=== PATIENT | male | born 1940 | race Caucasian/White ===

== ENCOUNTER 2018-05-15 18:58 | Inpatient (IN) | payer MEDICARE ==
[2018-05-15] MEDS ORDERED: ACETAMINOPHEN 325 MG TABLET PO ONE (19:32)
[2018-05-15] MEDS ORDERED: LIDOCAINE 5% (700 MG) TRANSDERMAL ADH..PATCH TP ONE (19:32)
--- NOTE | 2018-05-15 20:25 | RADIOLOGY REPORT (SQ) ---
2 VIEWS OF THE LEFT HIP HISTORY: Fall. Hip pain. COMPARISON: None. FINDINGS: The bone mineralization is normal. No acute fracture is seen. Hip joints are preserved. Partially visualized fixation of the proximal right femur with a fracture of the first and second most proximal screws. IMPRESSION: No acute left hip fracture. Prior fixation of the right proximal femur with hardware abnormalities as described above.
--- NOTE | 2018-05-15 20:30 | ER Document Report ---
ED General - General Stated Complaint: LEFT HIP PAIN Time Seen by Provider: 05/15/18 19:11 Notes: Patient is a 77-year-old male with a past medical history of hypertension, hyperlipidemia, ambulatory dysfunction at baseline who presents after landing on his toilet seat firmly tonight and now having inability to walk due to severe pain in the left hip. The patient states that he did have a fall 1 week ago landing directly on his left hip but not sustaining any additional injuries. States that he had been doing relatively well since that time, able to ambulate with only mild pain to the hip. However since hitting his hip on the toilet tonight he has been unable to walk and notes a severe, throbbing, constant pain to the hip. Nothing improves or worsens that pain currently. Denies any prior injury to the hip in the past. He does take aspirin daily but no other anticoagulation. He has noted extensive bruising on the hip for the past 1 week. Family also notes that he appears more pale than normal. Patient has not seen his primary care physician regarding today's concerns. He denies any chest pain, shortness of breath, syncope, vomiting or pain to any other location other than his left hip. TRAVEL OUTSIDE OF THE [place] IN LAST 30 DAYS: No Past Medical History - General Information source: Patient, Relative - Social History Smoking Status: Never Smoker Frequency of alcohol use: None Drug Abuse: None Lives with: Alone Family History: Reviewed & Not Pertinent Endocrine Medical History: Reports: Hx Diabetes Mellitus Type 1 Past Surgical History: Reports: Hx Orthopedic Surgery - right knee Review of Systems - Review of Systems Notes: Constitutional: Negative for fever. HENT: Negative for sore throat. Eyes: Negative for visual changes. Cardiovascular: Negative for chest pain. Respiratory: Negative for shortness of breath. Gastrointestinal: Negative for abdominal pain, vomiting or diarrhea. Genitourinary: Negative for dysuria. Musculoskeletal: Positive for left hip pain and injury Skin: Negative for rash. Neurological: Negative for headaches, weakness or numbness. 10 point ROS negative except as marked above and in HPI. Physical Exam - Vital signs Vitals: Temp 98.1 F 05/15/18 19:10 Interpretation: Tachycardic Notes: PHYSICAL EXAMINATION: GENERAL: Appears somewhat pale and in pain but no acute distress HEAD: Atraumatic, normocephalic. EYES: Pupils equal round and reactive to light, extraocular movements intact, sclera anicteric, conjunctiva are normal. ENT: nares patent, oropharynx clear without exudates. Moist mucous membranes. NECK: Normal range of motion, supple without lymphadenopathy LUNGS: Breath sounds clear to auscultation bilaterally and equal. No wheezes rales or rhonchi. HEART: Regular tachycardia without murmurs ABDOMEN: Soft, nontender, normoactive bowel sounds. No guarding, no rebound. No masses appreciated. EXTREMITIES: No pain with axial loading, internal or external rotation of the left hip. NEUROLOGICAL: No focal neurological deficits. Moves all extremities spontaneously and on command. PSYCH: Normal mood, normal affect. SKIN: Warm, Dry, normal turgor, extensive ecchymosis to the left lateral hip, thigh and pelvis region Course - Re-evaluation Re-evalutation: 05/15/18 20:28 Patient presents with left hip pain after mechanical fall 1 week ago when she landed on his left hip. The patient reports that he had been doing quite well until today until he landed onto the left hip rather abruptly while trying to sit down to use the toilet. He denies any syncopal symptoms or anything other than landing on the toilet seat too rapidly. Since that time has been unable to ambulate. On exam he has extensive bruising over the lateral aspect of the hip and proximal thigh also extending into the groin. Patient does have exquisite palpation tenderness although no pain with axial loading or internal or external rotation of the hip. X-ray without any evidence of acute fracture. The patient is noted to be tachycardic to 110 bpm at time of initial assessment and does appear somewhat pale. I do a concern of the patient could have bled substantially into the soft tissues based on his overall appearance and tachycardia. Tachycardia could also be due to uncontrolled pain. Will provide improved pain control, obtain a CT of the hip and pelvis to ensure that we are not missing an occult pelvic fracture given degree of pain in the patient 's inability to ambulate, basic laboratories to check for significant anemia and reassess the patient. 05/15/18 21:20 Laboratories do show findings consistent with a mild prerenal azotemia, anemia, CT of the hip without evidence of overt fractures. However, the patient does remain persistently tachycardic and his anemia is likely related to the significant amount of a hematoma in the left hip. Will discuss with hospitalist for admission. - Vital Signs Vital signs: Temp Pulse Resp BP Pulse Ox 98.1 F 05/15/18 19:10 - Laboratory Result Diagrams: 05/15/18 20:50 05/15/18 20:50 Laboratory results interpreted by me: 05/15/18 05/15/18 20:50 20:50 WBC 17.2 H RBC 3.33 L Hgb 9.6 L Hct 28.2 L BUN 45 H Creatinine 1.51 H Est GFR ( Amer) 55 L Est GFR (Non-Af Amer) 45 L Glucose 291 H - Diagnostic Test Radiology reviewed: Image reviewed, Reports reviewed Radiology results interpreted by me: 05/15/18 21:20 Left hip x-ray: No acute fracture or dislocation - EKG Interpretation by Me Additional EKG results interpreted by me: 05/15/18 21:21 Sinus tachycardia. Rate 106. No ST elevations or depressions. Discharge - Discharge Clinical Impression: Unable to ambulate, Prerenal azotemia Injury of left hip Qualifiers: Encounter type: initial encounter Qualified Code(s): S79.912A - Unspecified injury of left hip, initial encounter Anemia Qualifiers: Anemia type: unspecified type Qualified Code(s): D64.9 - Anemia, unspecified Condition: Fair Disposition: ADMITTED INPATIENT Admitting Provider: Hospitalist Unit Admitted: Telemetry Referrals: MICHAELA BYRD NP [Primary Care Provider] - Follow up as needed
[2018-05-15] MEDS: MORPHINE SULFATE 10 MG/ML INJ IV PRN (20:55)
[2018-05-15 20:58] LABS: HEMATOCRIT 28.2 % (37.9-51.0); HEMOGLOBIN 9.6 g/dL (13.5-17.0); MEAN CORPUSCULAR HEMOGLOBIN 28.8 pg (27.0-33.4); MEAN CORPUSCULAR VOLUME 85 fl (80-97); PLATELET COUNT 337 10^3/uL (150-450); RED BLOOD COUNT 3.33 10^6/uL (4.35-5.55); RED CELL DISTRIBUTION WIDTH 13.4 % (11.5-14.0); WHITE BLOOD COUNT 17.2 10^3/uL (4.0-10.5)
--- NOTE | 2018-05-15 21:04 | RADIOLOGY REPORT (SQ) ---
EXAM DESCRIPTION: CT LOWER EXTREMITY WITHOUT IV CONTRAST COMPLETED DATE/TME: 05/15/2018 20:27 CLINICAL HISTORY: 77 years, Male, left hip bruising, unable to walk EXAM DESCRIPTION: CLINICAL HISTORY: 77 years Male left hip bruising, unable to walk COMPARISON: None. TECHNIQUE: Contiguous axial CT images obtained through the left lower extremity without IV contrast. Reformatted images obtained. This exam was performed according to our department optimization program which includes automated exposure control, adjustment of the mA and/or kv according to patient size and/or use of iterative reconstruction technique. All CT scanners at this facility use dose modulation, iterative reconstruction, and/or weight based dosing when appropriate to reduce radiation dose to as low as reasonably achievable (ALARA). FINDINGS: There is a possible acute nondisplaced fracture of the posterior right ilium adjacent to the right SI joint. See image 43 series 2. There is also irregularity of the posterior limb in this region consistent with prior fracture. There is a surgical plate and screws seen in the proximal right femur. The uppermost screw is broken. There is a healing fracture of the right inferior pubic ramus. There is also healing fracture of the right superior pubic ramus. There is osseous union at both fractures. There is grade 1 anterolisthesis of L4 on L5. There is also a healing fracture of the left inferior pubic ramus. No acute fracture is seen. There are bony degenerative changes. IMPRESSION: Possible acute fracture of the posterior aspect of the right ileum but there is prior fracture at this location and this could simply be irregular healing. Coalition with site of focal pain will be helpful. No other acute abnormality. There are sequela of multiple prior fractures and there are degenerative changes.
[2018-05-15 21:13] LABS: ANION GAP 14 (5-19); BLOOD UREA NITROGEN 45 mg/dL (7-20); CALCIUM 9.6 mg/dL (8.4-10.2); CARBON DIOXIDE 22 mmol/L (22-30); CHLORIDE 103 mmol/L (98-107); GLUCOSE 291 mg/dL (75-110); POTASSIUM 4.6 mmol/L (3.6-5.0)
[2018-05-15] MEDS ORDERED: NORMAL SALINE 1000 ML 1,000 ML IV ONE (21:15)
[2018-05-15] MEDS ORDERED: DEXTROSE 50%-WATER 25 GM/50 ML DISP.SYRIN IV PRN ×2 (21:32)
[2018-05-15] MEDS ORDERED: MAG HYDROX/AL HYDROX/SIMETH SUSP 30 ML UDCUP PO PRN (21:32)
[2018-05-15] MEDS ORDERED: DEXTROSE 40% GEL 15 GM TUBE PO PRN ×2 (21:32)
[2018-05-15] MEDS ORDERED: GLUCAGON,HUMAN RECOMB 1 MG INJ IM PRN (21:32)
[2018-05-15] MEDS ORDERED: ACETAMINOPHEN 325 MG TABLET PO PRN (21:32)
[2018-05-15] MEDS ORDERED: HYDRALAZINE HCL INJ/PF 20 MG/1 ML SDV IV PRN (21:36)
[2018-05-15] MEDS ORDERED: NORMAL SALINE 1000 ML 1,000 ML IV SCH (21:45)
[2018-05-15] MEDS ORDERED: LACTULOSE SYRUP 20 GM/30 ML UDCUP PO ONE (22:15)
[2018-05-15] MEDS: HEPARIN SOD (PORCINE) 5,000 UNIT/ML 1 ML SYRINGE SUBCUT SCH (22:36)
--- NOTE | 2018-05-16 05:08 | PDOC H&P ---
History of Present Illness Admission Date/PCP: 05/15/18 21:29 MICHAELA BYRD NP Patient complains of: Left hip pain and bruising History of Present Illness: JUAQUIN KIRK is a 77 year old male with a past medical history of hypertension, dyslipidemia and diabetes. Patient presents 7 days after a fall resulting in pain with swelling and bruising to his left thigh, pain has been exceptionally worse tonight prompting evaluation in the emergency room where he was found to have leukocytosis of 17,000, anemia, uncontrolled hyperglycemia and acute renal failure. CT imaging is unremarkable for fracture. He is referred to the hospitalist for admission. Patient denies shortness of breath, chest pain, fever chills nausea vomiting. Given his history of diabetes, trauma with worsening pain I am concerned for avascular necrosis. He receives symptomatic management and orders for MRI. He denies recent change in medications. Past Medical History Cardiac Medical History: Reports: Hypertension Pulmonary Medical History: Reports: None EENT Medical History: Reports: None Neurological Medical History: Reports: None Endocrine Medical History: Reports: Diabetes Mellitus Type 1 Renal/ Medical History: Reports: None Malignancy Medical History: Reports: None GI Medical History: Reports: None Musculoskeltal Medical History: Reports: Other - Right knee surgery x9 Skin Medical History: Reports: None Psychiatric Medical History: Reports: None Traumatic Medical History: Reports: None Hematology: Reports: None Infectious Medical History: Reports: None Past Surgical History Past Surgical History: Reports: Orthopedic Surgery - right knee Social History Information Source: Patient Lives with: Alone Smoking Status: Never Smoker Frequency of Alcohol Use: None Drugs: None - Advance Directive Resuscitation Status: Full Code Family History Family History: Hypertension Parental Family History Reviewed: Yes Children Family History Reviewed: Yes Sibling(s) Family History Reviewed.: Yes Medication/Allergy Allergies/Adverse Reactions: No Known Allergies Allergy (Verified 05/15/18 21:55) Review of Systems Constitutional: ABSENT: chills, fever(s), headache(s), weight gain, weight loss Eyes: ABSENT: visual disturbances Ears: ABSENT: hearing changes Cardiovascular: ABSENT: chest pain, dyspnea on exertion, edema, orthropnea, palpitations Respiratory: ABSENT: cough, hemoptysis Gastrointestinal: ABSENT: abdominal pain, constipation, diarrhea, hematemesis, hematochezia, nausea, vomiting Genitourinary: ABSENT: dysuria, hematuria Musculoskeletal: ABSENT: joint swelling Integumentary: ABSENT: rash, wounds Neurological: ABSENT: abnormal gait, abnormal speech, confusion, dizziness, focal weakness, syncope Psychiatric: ABSENT: anxiety, depression, homidical ideation, suicidal ideation Endocrine: ABSENT: cold intolerance, heat intolerance, polydipsia, polyuria Hematologic/Lymphatic: ABSENT: easy bleeding, easy bruising Physical Exam Vital Signs: Temp Pulse Resp BP Pulse Ox 98.3 F 105 H 16 125/62 100 05/16/18 03:03 05/16/18 03:03 05/16/18 03:03 05/16/18 03:03 05/16/18 03:03 Intake & Output 05/14/18 05/15/18 05/16/18 11:59 11:59 11:59 Intake Total 1000 Balance 1000 Weight 87 kg General appearance: PRESENT: mild distress, well-developed, well-nourished Head exam: PRESENT: atraumatic, normocephalic Eye exam: PRESENT: conjunctiva pink, EOMI, PERRLA. ABSENT: scleral icterus Ear exam: PRESENT: normal external ear exam Mouth exam: PRESENT: moist, tongue midline Neck exam: ABSENT: carotid bruit, JVD, lymphadenopathy, thyromegaly Respiratory exam: PRESENT: clear to auscultation carri. ABSENT: rales, rhonchi, wheezes Cardiovascular exam: PRESENT: RRR. ABSENT: diastolic murmur, rubs, systolic murmur Pulses: PRESENT: normal dorsalis pedis pul Vascular exam: PRESENT: normal capillary refill GI/Abdominal exam: PRESENT: normal bowel sounds, soft. ABSENT: distended, guarding, mass, organolmegaly, rebound, tenderness Rectal exam: PRESENT: deferred Extremities exam: PRESENT: full ROM. ABSENT: calf tenderness, clubbing, pedal edema Neurological exam: PRESENT: alert, awake, oriented to person, oriented to place , oriented to time, oriented to situation, CN II-XII grossly intact. ABSENT: motor sensory deficit Psychiatric exam: PRESENT: appropriate affect, normal mood. ABSENT: homicidal ideation, suicidal ideation Skin exam: PRESENT: dry, intact, warm. ABSENT: cyanosis, rash Adult Front & Back Image: 1 - Ecchymosis Results Impressions: Hip X-Ray 05/15/18 19:12 IMPRESSION: No acute left hip fracture. Prior fixation of the right proximal femur with hardware abnormalities as described above. Lower Extremity CT 05/15/18 20:27 IMPRESSION: Possible acute fracture of the posterior aspect of the right ileum but there is prior fracture at this location and this could simply be irregular healing. Coalition with site of focal pain will be helpful. No other acute abnormality. There are sequela of multiple prior fractures and there are degenerative changes. Assessment & Plan - Diagnosis (1) Avascular necrosis Is this a current diagnosis for this admission?: Yes Plan: Likely avascular necrosis given history of diabetes, trauma subsequent worsening pain, symptomatic management, follow-up MRI and orthopedic surgery consult (2) Acute renal failure Is this a current diagnosis for this admission?: Yes Plan: Avoid nephrotoxic meds and doses IV fluid challenge, reevaluate chemistry (3) Diabetes Is this a current diagnosis for this admission?: Yes Plan: Outpatient regiment, hold metformin, Humalog sliding scale coverage (4) Anemia Qualifiers: Anemia type: unspecified type Qualified Code(s): D64.9 - Anemia, unspecified Is this a current diagnosis for this admission?: Yes Plan: Normocytic, follow-up anemia labs (5) Injury of left hip Qualifiers: Encounter type: initial encounter Qualified Code(s): S79.912A - Unspecified injury of left hip, initial encounter Is this a current diagnosis for this admission?: Yes Plan: Secondary to gait dysfunction, PT as tolerated (6) Unable to ambulate Is this a current diagnosis for this admission?: Yes Plan: Physical therapy as tolerated. - Time Time Spent: 30 to 50 Minutes - Inpatient Certification Medical Necessity: Need Close Monitoring Due to Risk of Patient Decompensation
[2018-05-16 05:11] LABS: ABSOLUTE LYMPHOCYTES (AUTO) 1.5 10^3/uL (0.5-4.7); ABSOLUTE MONOCYTES (AUTO) 0.9 10^3/uL (0.1-1.4); ABSOLUTE NEUT (AUTO) 7.6 10^3/uL (1.7-8.2); BASOPHILS % (AUTO) 0.3 % (0-2); EOSINOPHILS % (AUTO) 0.5 % (0-6); HEMATOCRIT 22.5 % (37.9-51.0); LYMPHOCYTES % (AUTO) 14.8 % (13-45); MEAN CORPUSCULAR HEMOGLOBIN 29.9 pg (27.0-33.4); MEAN CORPUSCULAR HGB CONC 34.9 g/dL (32.0-36.0); MEAN CORPUSCULAR VOLUME 86 fl (80-97); MONOCYTES % (AUTO) 8.9 % (3-13); PLATELET COUNT 293 10^3/uL (150-450); RED BLOOD COUNT 2.62 10^6/uL (4.35-5.55); RED CELL DISTRIBUTION WIDTH 13.4 % (11.5-14.0); SEGMENTED NEUTROPHILS % (AUTO) 75.5 % (42-78); TOTAL CELLS COUNTED % (AUTO) 100 %; WHITE BLOOD COUNT 10.1 10^3/uL (4.0-10.5)
[2018-05-16 05:17] LABS: INTERNATIONAL RATION (INR) 1.07; PROTHROMBIN TIME 14.4 SEC (11.4-15.4)
[2018-05-16 05:18] LABS: HEMOGLOBIN 7.8 g/dL (13.5-17.0)
[2018-05-16 05:32] LABS: ANION GAP 9 (5-19); BLOOD UREA NITROGEN 38 mg/dL (7-20); CALCIUM 8.6 mg/dL (8.4-10.2); CARBON DIOXIDE 24 mmol/L (22-30); CHLORIDE 107 mmol/L (98-107); GLUCOSE 213 mg/dL (75-110); POTASSIUM 4.5 mmol/L (3.6-5.0); SODIUM 139.8 mmol/L (137-145)
[2018-05-16] MEDS: HEPARIN SOD (PORCINE) 5,000 UNIT/ML 1 ML SYRINGE SUBCUT SCH ×3 (05:44→22:20)
[2018-05-16] MEDS ORDERED: NORMAL SALINE 1000 ML 1,000 ML IV ONE (06:15)
[2018-05-16] MEDS: DOCUSATE SODIUM 100 MG CAPSULE PO SCH ×2 (09:35→18:27)
--- NOTE | 2018-05-16 11:06 | RADIOLOGY REPORT (SQ) ---
EXAM DESCRIPTION: MRI PELVIS WITHOUT COMPLETED DATE/TIME: 05/16/2018 10:42 am REASON FOR STUDY: Left avascular necrosis? COMPARISON: Plain radiographs, CT. TECHNIQUE: Lefthip images acquired and stored on PACS. Multiplanar images to include fat sensitive s equences as T1, fluid sensitive sequences as T2/STIR and gradient echo sequences. Large FOV fat and f luid sensitive sequences include pelvis and opposite hip. LIMITATIONS: None. FINDINGS: BONE CORTEX AND MARROW: No generalized marrow replacement. No occult fracture. No worriso me bone lesions. TARGETED HIP: FEMORAL HEAD: No occult fracture. No osteophytes or subchondral cysts. Normal sphericity of femoral h ead/neck junction. No acetabular dysplasia. No evidence femoroacetabular impingement. No significant effusion. ACETABULUM: No acetabular dysplasia. No subchondral cysts. LABRUM: No loss of cartilage or delamination. Labrum is intact. No paralabral cysts. TROCHANTER: No trochanteric bursal effusion. OPPOSITE HIP: Limited evaluation. No worrisome bone lesions. No significant effusion. PELVIS, LOWER LUMBAR SPINE, SACROILIAC JOINTS: PELVIS : No insufficiency/stress fractures. No significant degenerative changes. Sacroiliac joints normal. L SPINE: No significant osteophytes or degenerative changes of the visualized lumbar spine. MUSCLES AND SOFT TISSUES: There is a massive hematoma primarily in the inferior gluteus medius but al so extending into the fascia planes between the gluteus medius and gluteus mejia. Maximum diameter 20 cm. Possible site of active bleeding seen. PELVIC SOFT TISSUES: No masses or adenopathy. SCIATIC NERVE: Identified, without masses or abnormal signal. OTHER: No other significant finding. IMPRESSION: Massive soft tissue hematoma involving the left gluteus medius and extending into the fa scial planes between the gluteus medius and gluteus mejia. Maximum diameter 20 cm. Possible site of active bleeding seen. COMMENT: Pertinent findings on the imaging study reported as a CRITICAL RESULT to Awa at10:54 on . Category of Critical Result: Possible active bleeding site. TECHNICAL DOCUMENTATION: JOB ID: [id number] [employer]- All Rights Reserved Reading location - IP/workstation name: [email or web address]
[2018-05-16] MEDS ORDERED: NORMAL SALINE 250 ML IV PRN ×2 (11:35)
[2018-05-16] MEDS ORDERED: FUROSEMIDE INJ/PF 40 MG/4 ML SDV IV PRN (11:37)
[2018-05-16] MEDS: INSULIN LISPRO 100 UNIT/ML 3 ML VIAL SUBCUT PRN ×3 (12:50→22:32)
[2018-05-16] MEDS ORDERED: DIPHENHYDRAMINE HCL 50 MG/ML VIAL IV PRN (17:22)
--- NOTE | 2018-05-16 17:43 | PDOC CONSULTATION ---
History of Present Illness Admission Date/PCP: 05/15/18 21:29 MICHAELA BYRD NP Patient complains of: Left hip pain History of Present Illness: JUAQUIN KIRK is a 77 year old male who sustained a fall onto his left hip approximately 7 days ago. He then states the other day he sat hard onto the commode after that point he began having increasing pain and swelling in his left leg with the inability to weight-bear. Patient states his pain has improved since admission current pain 4/10. Denies numbness. According to nursing staff there has not been an increase or expansion of the ecchymotic area. Past Medical History Cardiac Medical History: Reports: Hypertension Pulmonary Medical History: Reports: None EENT Medical History: Reports: None Neurological Medical History: Reports: None Endocrine Medical History: Reports: Diabetes Mellitus Type 1 Renal/ Medical History: Reports: None Malignancy Medical History: Reports: None GI Medical History: Reports: None Musculoskeltal Medical History: Reports: Other - Right knee surgery x9 Skin Medical History: Reports: None Psychiatric Medical History: Reports: None Traumatic Medical History: Reports: None Hematology: Reports: None Infectious Medical History: Reports: None Past Surgical History Past Surgical History: Reports: Orthopedic Surgery - right knee Social History Lives with: Alone Smoking Status: Never Smoker Frequency of Alcohol Use: None Drugs: None - Advance Directive Resuscitation Status: Full Code Family History Family History: Hypertension Parental Family History Reviewed: No Children Family History Reviewed: No Sibling(s) Family History Reviewed.: No Medication/Allergy Home Medications: Atorvastatin Calcium [Lipitor 40 mg Tablet] 40 mg PO QHS 05/16/18 Bimatoprost [Lumigan 0.01% Oph Soln 2.5 ml/Bottle] 1 drop OU QHS 05/16/18 Insulin Glargine,Hum.rec.anlog [Lantus Insulin 100 Unit/mL] 48 unit SQ DAILY 01/24 Insulin Lispro [Humalog Insulin (Lispro) 100 unit/mL] 0 unit SQ .SLIDING SCALE 05/16/18 Allergies/Adverse Reactions: No Known Allergies Allergy (Verified 05/15/18 21:55) Review of Systems Constitutional: ABSENT: chills, fever(s), headache(s), weight gain, weight loss Eyes: ABSENT: visual disturbances Ears: ABSENT: hearing changes Cardiovascular: ABSENT: chest pain, dyspnea on exertion, edema, orthropnea, palpitations Respiratory: ABSENT: cough, hemoptysis Gastrointestinal: ABSENT: abdominal pain, constipation, diarrhea, hematemesis, hematochezia, nausea, vomiting Genitourinary: ABSENT: dysuria, hematuria Integumentary: ABSENT: rash, wounds Neurological: ABSENT: abnormal gait, abnormal speech, confusion, dizziness, focal weakness, syncope Psychiatric: ABSENT: anxiety, depression, homidical ideation, suicidal ideation Endocrine: ABSENT: cold intolerance, heat intolerance, menstrual abnormalities, polydipsia, polyuria Hematologic/Lymphatic: PRESENT: easy bleeding, easy bruising - Patient notes easy bruising and bleeding and thus was discontinued aspirin in the past. Denies history of GI bleed or other specific medical hematoma. ABSENT: lymphadenopathy Physical Exam Vital Signs: Temp Pulse Resp BP Pulse Ox 98.7 F 96 14 138/61 H 100 05/16/18 16:28 05/16/18 16:28 05/16/18 16:28 05/16/18 16:28 05/16/18 16:28 Intake & Output 05/15/18 05/16/18 05/17/18 06:59 06:59 06:59 Intake Total 1000 1000 Balance 1000 1000 Weight 87 kg Results Laboratory Results: 05/16/18 04:08 05/16/18 04:08 05/16/18 05/16/18 05/16/18 04:08 04:08 04:08 WBC 10.1 RBC 2.62 L Hgb 7.8 L Hct 22.5 L MCV 86 MCH 29.9 MCHC 34.9 RDW 13.4 Plt Count 293 Seg Neutrophils % 75.5 Lymphocytes % 14.8 Monocytes % 8.9 Eosinophils % 0.5 Basophils % 0.3 Absolute Neutrophils 7.6 Absolute Lymphocytes 1.5 Absolute Monocytes 0.9 Absolute Eosinophils 0.0 Absolute Basophils 0.0 Sodium 139.8 Potassium 4.5 Chloride 107 Carbon Dioxide 24 Anion Gap 9 BUN 38 H Creatinine 1.38 H Est GFR ( Amer) > 60 Est GFR (Non-Af Amer) 50 L Glucose 213 H Calcium 8.6 Iron 12.5 L Blood Type Antibody Screen 05/16/18 12:29 WBC RBC Hgb Hct MCV MCH MCHC RDW Plt Count Seg Neutrophils % Lymphocytes % Monocytes % Eosinophils % Basophils % Absolute Neutrophils Absolute Lymphocytes Absolute Monocytes Absolute Eosinophils Absolute Basophils Sodium Potassium Chloride Carbon Dioxide Anion Gap BUN Creatinine Est GFR ( Amer) Est GFR (Non-Af Amer) Glucose Calcium Iron Blood Type O POSITIVE Antibody Screen NEGATIVE Impressions: Hip X-Ray 05/15/18 19:12 IMPRESSION: No acute left hip fracture. Prior fixation of the right proximal femur with hardware abnormalities as described above. Lower Extremity CT 05/15/18 20:27 IMPRESSION: Possible acute fracture of the posterior aspect of the right ileum but there is prior fracture at this location and this could simply be irregular healing. Coalition with site of focal pain will be helpful. No other acute abnormality. There are sequela of multiple prior fractures and there are degenerative changes. Pelvis MRI 05/16/18 00:00 IMPRESSION: Massive soft tissue hematoma involving the left gluteus medius and extending into the fascial planes between the gluteus medius and gluteus mejia. Maximum diameter 20 cm. Possible site of active bleeding seen. Status: Image reviewed by me - I have patient's MRI CT scan and radiographs which are consistent with large hematoma of the left gluteal region. This has been reviewed with the radiologist there is an area of possible active bleed although this would be rare and unlikely. No evidence of fracture. Assessment & Plan - Diagnosis (1) Hip hematoma, left Qualifiers: Encounter type: initial encounter Qualified Code(s): S70.02XA - Contusion of left hip, initial encounter Is this a current diagnosis for this admission?: Yes Plan: Patient has evidence of a large left hip hematoma but no history of blood dyscrasia or disorder. I have discussed the case with radiology they do admit the findings could suggest possible active bleeder although this would be a rare finding especially with MRI. Discussed various treatments with the radiologist including possible embolization which they felt was feasible. Currently however there is no evidence of hematoma expansion although patient's hemoglobin/hematocrit did decrease to 7.8/22.5 however he also received 3 L of fluid which could have caused dilution. Given the fact there is no evidence of expansion we will continue to monitor him clinically. However if he continues to have bleeding issues consideration for referral to interventional radiology and embolization.
[2018-05-16] MEDS: MORPHINE SULFATE 10 MG/ML INJ IV PRN (20:01)
[2018-05-16] MEDS: KETOROLAC TROMETHAMINE INJ/PF 30 MG/1 ML SDV IV PRN (20:19)
[2018-05-16 23:19] LABS: ABSOLUTE BASOPHILS # (AUTO) 0.1 10^3/uL (0.0-0.2); ABSOLUTE EOSINOPHILS # (AUTO) 0.1 10^3/uL (0.0-0.6); ABSOLUTE MONOCYTES (AUTO) 0.9 10^3/uL (0.1-1.4); ABSOLUTE NEUT (AUTO) 12.1 10^3/uL (1.7-8.2); BASOPHILS % (AUTO) 0.5 % (0-2); EOSINOPHILS % (AUTO) 0.9 % (0-6); HEMATOCRIT 29.8 % (37.9-51.0); MEAN CORPUSCULAR HEMOGLOBIN 29.6 pg (27.0-33.4); MEAN CORPUSCULAR HGB CONC 34.8 g/dL (32.0-36.0); MEAN CORPUSCULAR VOLUME 85 fl (80-97); MONOCYTES % (AUTO) 6.2 % (3-13); PLATELET COUNT 269 10^3/uL (150-450); RED CELL DISTRIBUTION WIDTH 13.7 % (11.5-14.0); SEGMENTED NEUTROPHILS % (AUTO) 85.4 % (42-78); TOTAL CELLS COUNTED % (AUTO) 100 %; WHITE BLOOD COUNT 14.1 10^3/uL (4.0-10.5)
[2018-05-16 23:20] LABS: HEMOGLOBIN 10.4 g/dL (13.5-17.0)
[2018-05-17] MEDS: MORPHINE SULFATE 10 MG/ML INJ IV PRN (00:35)
[2018-05-17] MEDS: HEPARIN SOD (PORCINE) 5,000 UNIT/ML 1 ML SYRINGE SUBCUT SCH ×3 (05:19→22:07)
--- NOTE | 2018-05-17 06:02 | PROGRESS NOTE E ---
Progress Note NAME: JUAQUIN KIRK : 1940 AGE: 77Y DATE: 05/16/2018 ROOM: 537 SUBJECTIVE: The patient is a 77-year-old male who had a past medical history of right knee surgery and hypertension,diabetes. The patient admitted after he fell at home. He had a CT scan initially of his pelvis, which is questionable for fracture, but did not confirm fracture. The patient had an MRI this morning, which did not show any fracture, but showed very large hematoma measuring 20 cm in the left gluteal area, and hemoglobin dropped to 7.8 from 9.6 on admission last night. His blood pressure is stable. OBJECTIVE: GENERAL: The patient is lying in bed comfortable, not in distress. VITAL SIGNS: Blood pressure 144/73, temperature 98.3, heart rate 103, saturation 100%. HEENT: Head: Normocephalic, atraumatic. Pupils round, reactive to light and accommodation bilateral. Extraocular movement intact. Ears: Tympanic membranes intact bilateral. No discharge from the ears. No discharge from the nose. NECK: Supple. No increased JVD. No thyromegaly. No lymphadenopathy. CARDIOVASCULAR: Normal S1 and S2. Regular rate and rhythm. No murmur. No gallop. RESPIRATORY: Lungs clear. ABDOMEN: Soft. MUSCULOSKELETAL: Swelling of the left hip. LABORATORY: White blood count is 10, hemoglobin 7.8. Creatinine 1.3, sodium 139. ASSESSMENT: 1. LARGE HEMATOMA OF THE LEFT GLUTEAL, POSSIBLE ACTIVE BLEEDING. 2. HYPERTENSION. PLAN: 1. Will type and screen 2 units of blood. Transfuse 2 units of blood. 2. Stat H and H every 6 hours. 3. Consult Orthopedics 4. Monitor very closely. DICTATING PHYSICIAN: BRIANNA VEE M.D. [id number] PHY#: [id number] ID: [id number] JOB#: [id number] ACCT: [id number] cc: > MTDD
[2018-05-17] MEDS: INSULIN LISPRO 100 UNIT/ML 3 ML VIAL SUBCUT PRN ×5 (06:46→17:09)
[2018-05-17] MEDS: DOCUSATE SODIUM 100 MG CAPSULE PO SCH ×2 (09:09→17:10)
[2018-05-17] MEDS: KETOROLAC TROMETHAMINE INJ/PF 30 MG/1 ML SDV IV PRN (10:36)
--- NOTE | 2018-05-17 10:36 | EKG REPORT ---
SEVERITY:- OTHERWISE NORMAL ECG - SINUS TACHYCARDIA : Confirmed by: Jean Painting 17-May-2018 10:36:01
--- NOTE | 2018-05-17 11:34 | PDOC PROGRESS REPORT ---
Subjective Progress Note for:: 05/17/18 Subjective:: The patient is 77-year-old male ,who was admitted yesterday after he fell The patient had a CT scan and MRI of the left leg. This showed large gluteal hematoma the patient was transfused 2 units of blood on his hemoglobin today increased to 10.4 from 7.8 yearsday. Doing well Reason For Visit: LEFT HIP PAIN R/O AVASCULAR NECROSIS Physical Exam Vital Signs: Temp Pulse Resp BP Pulse Ox 98.8 F 106 H 18 144/68 H 99 05/17/18 08:00 05/17/18 08:00 05/17/18 08:00 05/17/18 08:00 05/17/18 08:00 Intake & Output 05/16/18 05/17/18 05/18/18 06:59 06:59 06:59 Intake Total 1000 2541 Output Total 1600 Balance 1000 941 Weight 87 kg 87 kg General appearance: PRESENT: no acute distress Head exam: PRESENT: atraumatic, normocephalic Eye exam: PRESENT: PERRLA Mouth exam: PRESENT: moist Neck exam: ABSENT: carotid bruit Cardiovascular exam: PRESENT: RRR, +S1, +S2 Extremities exam: PRESENT: tenderness Neurological exam: PRESENT: alert, awake Results Laboratory Results: 05/16/18 23:09 05/16/18 04:08 05/16/18 05/16/18 12:29 23:09 WBC 14.1 H RBC 3.50 L Hgb 10.4 L D Hct 29.8 L MCV 85 MCH 29.6 MCHC 34.8 RDW 13.7 Plt Count 269 Seg Neutrophils % 85.4 H Lymphocytes % 7.0 L Monocytes % 6.2 Eosinophils % 0.9 Basophils % 0.5 Absolute Neutrophils 12.1 H Absolute Lymphocytes 1.0 Absolute Monocytes 0.9 Absolute Eosinophils 0.1 Absolute Basophils 0.1 Blood Type O POSITIVE Antibody Screen NEGATIVE Impressions: Hip X-Ray 05/15/18 19:12 IMPRESSION: No acute left hip fracture. Prior fixation of the right proximal femur with hardware abnormalities as described above. Lower Extremity CT 05/15/18 20:27 IMPRESSION: Possible acute fracture of the posterior aspect of the right ileum but there is prior fracture at this location and this could simply be irregular healing. Coalition with site of focal pain will be helpful. No other acute abnormality. There are sequela of multiple prior fractures and there are degenerative changes. Pelvis MRI 05/16/18 00:00 IMPRESSION: Massive soft tissue hematoma involving the left gluteus medius and extending into the fascial planes between the gluteus medius and gluteus mejia. Maximum diameter 20 cm. Possible site of active bleeding seen.
--- NOTE | 2018-05-17 12:13 | PDOC PROGRESS REPORT ---
Subjective Progress Note for:: 05/17/18 Subjective:: Patient lying in bedside chair without distress. States the pain is still there but is slowly improving. Denies numbness or tingling. Reason For Visit: LEFT HIP PAIN R/O AVASCULAR NECROSIS Physical Exam Vital Signs: Temp Pulse Resp BP Pulse Ox 98.8 F 106 H 18 144/68 H 99 05/17/18 08:00 05/17/18 08:00 05/17/18 08:00 05/17/18 08:00 05/17/18 08:00 Intake & Output 05/16/18 05/17/18 05/18/18 06:59 06:59 06:59 Intake Total 1000 2541 Output Total 1600 Balance 1000 941 Weight 87 kg 87 kg Musculoskeletal exam: PRESENT: other - Left lower extremity: Notable bruising/ ecchymosis throughout the posterior lateral aspect of the thigh. Firmness to palpation along the gluteus mejia. Mild tenderness to palpation. Intact independent hip flexion/extension. Intact resistance against straight leg raise. Intact plantar flexion/dorsiflexion without sensory deficits. Dorsalis pedis 2+. Results Laboratory Results: 05/16/18 23:09 05/16/18 04:08 05/16/18 05/16/18 12:29 23:09 WBC 14.1 H RBC 3.50 L Hgb 10.4 L D Hct 29.8 L MCV 85 MCH 29.6 MCHC 34.8 RDW 13.7 Plt Count 269 Seg Neutrophils % 85.4 H Lymphocytes % 7.0 L Monocytes % 6.2 Eosinophils % 0.9 Basophils % 0.5 Absolute Neutrophils 12.1 H Absolute Lymphocytes 1.0 Absolute Monocytes 0.9 Absolute Eosinophils 0.1 Absolute Basophils 0.1 Blood Type O POSITIVE Antibody Screen NEGATIVE Impressions: Hip X-Ray 05/15/18 19:12 IMPRESSION: No acute left hip fracture. Prior fixation of the right proximal femur with hardware abnormalities as described above. Lower Extremity CT 05/15/18 20:27 IMPRESSION: Possible acute fracture of the posterior aspect of the right ileum but there is prior fracture at this location and this could simply be irregular healing. Coalition with site of focal pain will be helpful. No other acute abnormality. There are sequela of multiple prior fractures and there are degenerative changes. Pelvis MRI 05/16/18 00:00 IMPRESSION: Massive soft tissue hematoma involving the left gluteus medius and extending into the fascial planes between the gluteus medius and gluteus mejia. Maximum diameter 20 cm. Possible site of active bleeding seen. Assessment & Plan - Diagnosis (1) Hip hematoma, left Qualifiers: Encounter type: initial encounter Qualified Code(s): S70.02XA - Contusion of left hip, initial encounter Is this a current diagnosis for this admission?: Yes Plan: Patient has evidence of a large left hip hematoma but no history of blood dyscrasia or disorder. I have discussed the case with radiology they do admit the findings could suggest possible active bleeder although this would be a rare finding especially with MRI. Discussed various treatments with the radiologist including possible embolization which they felt was feasible. Currently however there is no evidence of hematoma expansion although patient's hemoglobin/hematocrit did decrease to 7.8/22.5 but after 2 units packed red blood cells his H&H has stabilized. We will continue to monitor H&H if it remains stable the next 24 hours patient likely stable for discharge to home. Follow-up as outpatient.
[2018-05-17 12:21] LABS: ABSOLUTE EOSINOPHILS # (AUTO) 0.3 10^3/uL (0.0-0.6); ABSOLUTE LYMPHOCYTES (AUTO) 0.9 10^3/uL (0.5-4.7); ABSOLUTE NEUT (AUTO) 7.7 10^3/uL (1.7-8.2); BASOPHILS % (AUTO) 0.3 % (0-2); EOSINOPHILS % (AUTO) 2.6 % (0-6); HEMATOCRIT 31.6 % (37.9-51.0); HEMOGLOBIN 10.7 g/dL (13.5-17.0); LYMPHOCYTES % (AUTO) 9.5 % (13-45); MEAN CORPUSCULAR HEMOGLOBIN 29.7 pg (27.0-33.4); MEAN CORPUSCULAR VOLUME 88 fl (80-97); MONOCYTES % (AUTO) 9.8 % (3-13); PLATELET COUNT 299 10^3/uL (150-450); RED BLOOD COUNT 3.62 10^6/uL (4.35-5.55); RED CELL DISTRIBUTION WIDTH 14.1 % (11.5-14.0); SEGMENTED NEUTROPHILS % (AUTO) 77.8 % (42-78); TOTAL CELLS COUNTED % (AUTO) 100 %; WHITE BLOOD COUNT 9.9 10^3/uL (4.0-10.5)
[2018-05-17 12:41] LABS: ALBUMIN 3.5 g/dL (3.5-5.0); ANION GAP 16 (5-19); BLOOD UREA NITROGEN 38 mg/dL (7-20); CALCIUM 9.4 mg/dL (8.4-10.2); CARBON DIOXIDE 21 mmol/L (22-30); CHLORIDE 101 mmol/L (98-107); PHOSPHORUS 4.1 mg/dL (2.5-4.5); POTASSIUM 4.8 mmol/L (3.6-5.0); SODIUM 138.2 mmol/L (137-145)
[2018-05-17 12:56] LABS: GLUCOSE 432 mg/dL (75-110)
--- NOTE | 2018-05-17 20:19 | PDOC CONSULTATION ---
Consultation Consult Date: 05/17/18 Consult reason:: pains left hip with ecchymosis History of Present Illness Admission Date/PCP: 05/15/18 21:29 MICHAELA BYRD NP History of Present Illness: JUAQUIN KIRK is a 77 year old male who sustained a fall about a week ago and injured left hip. Developed pains and bruising left hip. Ct scan showed hematoma. Patient was seen by Orthopedics earlier. Past Medical History Cardiac Medical History: Reports: Hypertension Pulmonary Medical History: Reports: None EENT Medical History: Reports: None Neurological Medical History: Reports: None Endocrine Medical History: Reports: Diabetes Mellitus Type 1 Renal/ Medical History: Reports: None Malignancy Medical History: Reports: None GI Medical History: Reports: None Musculoskeltal Medical History: Reports: Other - Right knee surgery x9 Skin Medical History: Reports: None Psychiatric Medical History: Reports: None Traumatic Medical History: Reports: None Hematology: Reports: None Infectious Medical History: Reports: None Past Surgical History Past Surgical History: Reports: Orthopedic Surgery - right knee Social History Lives with: Alone Smoking Status: Never Smoker Frequency of Alcohol Use: None Drugs: None - Advance Directive Resuscitation Status: Full Code Family History Family History: Hypertension Parental Family History Reviewed: Yes Children Family History Reviewed: No Sibling(s) Family History Reviewed.: No Medication/Allergy Home Medications: Atorvastatin Calcium [Lipitor 40 mg Tablet] 40 mg PO QHS 05/16/18 Bimatoprost [Lumigan 0.01% Oph Soln 2.5 ml/Bottle] 1 drop OU QHS 05/16/18 Insulin Glargine,Hum.rec.anlog [Lantus Insulin 100 Unit/mL] 48 unit SQ DAILY 01/24 Insulin Lispro [Humalog Insulin (Lispro) 100 unit/mL] 0 unit SQ .SLIDING SCALE 05/16/18 Allergies/Adverse Reactions: No Known Allergies Allergy (Verified 05/15/18 21:55) Review of Systems Constitutional: PRESENT: other - denies fever/chills Eyes: PRESENT: other - no visual/hearing changes Cardiovascular: PRESENT: other - no chest pains/cough Gastrointestinal: PRESENT: other - no pains Genitourinary: PRESENT: other - no dysuria Physical Exam Vital Signs: Temp Pulse Resp BP Pulse Ox 98.3 F 100 17 145/56 H 100 05/17/18 12:00 05/17/18 19:00 05/17/18 12:00 05/17/18 12:00 05/17/18 12:00 Intake & Output 05/16/18 05/17/18 05/18/18 06:59 06:59 06:59 Intake Total 1000 2541 502 Output Total 1600 660 Balance 1000 941 -158 Weight 87 kg 87 kg General appearance: PRESENT: mild distress Head exam: PRESENT: atraumatic Eye exam: PRESENT: conjunctiva pink Neck exam: PRESENT: full ROM Respiratory exam: PRESENT: clear to auscultation carri Cardiovascular exam: PRESENT: RRR Pulses: PRESENT: normal radial pulses Vascular exam: PRESENT: normal capillary refill Rectal exam: PRESENT: deferred Musculoskeletal exam: PRESENT: tenderness - left hip with ecchymosis to left thigh Neurological exam: PRESENT: alert, oriented to person, oriented to place, oriented to time, oriented to situation Psychiatric exam: PRESENT: appropriate affect Skin exam: PRESENT: normal color, warm Results Laboratory Results: 05/17/18 11:57 05/17/18 11:57 05/16/18 05/17/18 05/17/18 23:09 11:57 11:57 WBC 14.1 H 9.9 RBC 3.50 L 3.62 L Hgb 10.4 L D 10.7 L Hct 29.8 L 31.6 L MCV 85 88 MCH 29.6 29.7 MCHC 34.8 34.0 RDW 13.7 14.1 H Plt Count 269 299 Seg Neutrophils % 85.4 H 77.8 Lymphocytes % 7.0 L 9.5 L Monocytes % 6.2 9.8 Eosinophils % 0.9 2.6 Basophils % 0.5 0.3 Absolute Neutrophils 12.1 H 7.7 Absolute Lymphocytes 1.0 0.9 Absolute Monocytes 0.9 1.0 Absolute Eosinophils 0.1 0.3 Absolute Basophils 0.1 0.0 Sodium 138.2 Potassium 4.8 Chloride 101 Carbon Dioxide 21 L Anion Gap 16 BUN 38 H Creatinine 1.54 H Est GFR ( Amer) 53 L Est GFR (Non-Af Amer) 44 L Glucose 432 H* Calcium 9.4 Phosphorus 4.1 Albumin 3.5 Impressions: Hip X-Ray 05/15/18 19:12 IMPRESSION: No acute left hip fracture. Prior fixation of the right proximal femur with hardware abnormalities as described above. Lower Extremity CT 05/15/18 20:27 IMPRESSION: Possible acute fracture of the posterior aspect of the right ileum but there is prior fracture at this location and this could simply be irregular healing. Coalition with site of focal pain will be helpful. No other acute abnormality. There are sequela of multiple prior fractures and there are degenerative changes. Pelvis MRI 05/16/18 00:00 IMPRESSION: Massive soft tissue hematoma involving the left gluteus medius and extending into the fascial planes between the gluteus medius and gluteus mejia. Maximum diameter 20 cm. Possible site of active bleeding seen. Assessment & Plan - Diagnosis (1) Hip hematoma, left Qualifiers: Encounter type: initial encounter Qualified Code(s): S70.02XA - Contusion of left hip, initial encounter Is this a current diagnosis for this admission?: Yes (2) Injury of left hip Qualifiers: Encounter type: initial encounter Qualified Code(s): S79.912A - Unspecified injury of left hip, initial encounter Is this a current diagnosis for this admission?: Yes - Time Time Spent: 30 to 50 Minutes - Inpatient Certification Medical Necessity: Need for Pain Control, Risk of Complication if Not Cared For in Hospital - Plan Summary Plan Summary: Agree with Ortho recommendation. His pains are improving and swelling appears to be not getting worse. Conservative management. Will leave it up to Ortho as far as further management.
[2018-05-17] MEDS: INSULIN GLARGINE,HUM.REC.ANLOG 300 UNIT/3 ML INSULN.PEN SUBCUT SCH (22:05)
[2018-05-18] MEDS: INSULIN LISPRO 100 UNIT/ML 3 ML VIAL SUBCUT PRN ×4 (00:06→22:49)
[2018-05-18] MEDS: HEPARIN SOD (PORCINE) 5,000 UNIT/ML 1 ML SYRINGE SUBCUT SCH ×3 (05:33→21:36)
[2018-05-18 07:18] LABS: ABSOLUTE BASOPHILS # (AUTO) 0.1 10^3/uL (0.0-0.2); ABSOLUTE EOSINOPHILS # (AUTO) 0.6 10^3/uL (0.0-0.6); ABSOLUTE LYMPHOCYTES (AUTO) 1.4 10^3/uL (0.5-4.7); ABSOLUTE MONOCYTES (AUTO) 0.7 10^3/uL (0.1-1.4); ABSOLUTE NEUT (AUTO) 6.2 10^3/uL (1.7-8.2); BASOPHILS % (AUTO) 0.6 % (0-2); EOSINOPHILS % (AUTO) 6.4 % (0-6); HEMATOCRIT 27.8 % (37.9-51.0); HEMOGLOBIN 9.7 g/dL (13.5-17.0); LYMPHOCYTES % (AUTO) 15.8 % (13-45); MEAN CORPUSCULAR VOLUME 86 fl (80-97); MONOCYTES % (AUTO) 7.7 % (3-13); PLATELET COUNT 281 10^3/uL (150-450); RED BLOOD COUNT 3.24 10^6/uL (4.35-5.55); RED CELL DISTRIBUTION WIDTH 13.9 % (11.5-14.0); SEGMENTED NEUTROPHILS % (AUTO) 69.5 % (42-78); TOTAL CELLS COUNTED % (AUTO) 100 %; WHITE BLOOD COUNT 8.9 10^3/uL (4.0-10.5)
[2018-05-18] MEDS: DOCUSATE SODIUM 100 MG CAPSULE PO SCH ×2 (09:01→17:10)
--- NOTE | 2018-05-18 13:47 | PDOC PROGRESS REPORT ---
Subjective Progress Note for:: 05/18/18 Subjective:: [id number]av[age]-old male came to the emergency room after a fall 7 days ago, with swelling and bruising of the left thigh. The orthotic team evaluated the patient. The MRI shows there is no obvious fracture. Patient comfortably in the bed. No complaints. Reason For Visit: LEFT HIP PAIN R/O AVASCULAR NECROSIS Physical Exam Vital Signs: Temp Pulse Resp BP Pulse Ox 97.4 F 91 18 135/52 H 97 05/18/18 07:30 05/18/18 07:30 05/18/18 07:30 05/18/18 07:30 05/18/18 07:30 Intake & Output 05/17/18 05/18/18 05/19/18 06:59 06:59 06:59 Intake Total 2541 679 Output Total 1600 860 Balance 941 -181 Weight 87 kg 87.2 kg General appearance: PRESENT: no acute distress Head exam: PRESENT: atraumatic Eye exam: PRESENT: PERRLA Neck exam: ABSENT: carotid bruit, JVD, lymphadenopathy, thyromegaly Respiratory exam: PRESENT: clear to auscultation carri. ABSENT: rales, rhonchi, wheezes Vascular exam: PRESENT: normal capillary refill Neurological exam: PRESENT: alert, awake, oriented to person, oriented to place , oriented to time, oriented to situation, CN II-XII grossly intact. ABSENT: motor sensory deficit Psychiatric exam: PRESENT: agitated Skin exam: PRESENT: other - Bruises over the left thigh. Results Laboratory Results: 05/18/18 06:59 05/17/18 11:57 05/18/18 06:59 WBC 8.9 RBC 3.24 L Hgb 9.7 L Hct 27.8 L MCV 86 MCH 30.0 MCHC 35.0 RDW 13.9 Plt Count 281 Seg Neutrophils % 69.5 Lymphocytes % 15.8 Monocytes % 7.7 Eosinophils % 6.4 H Basophils % 0.6 Absolute Neutrophils 6.2 Absolute Lymphocytes 1.4 Absolute Monocytes 0.7 Absolute Eosinophils 0.6 Absolute Basophils 0.1 Impressions: Hip X-Ray 05/15/18 19:12 IMPRESSION: No acute left hip fracture. Prior fixation of the right proximal femur with hardware abnormalities as described above. Lower Extremity CT 05/15/18 20:27 IMPRESSION: Possible acute fracture of the posterior aspect of the right ileum but there is prior fracture at this location and this could simply be irregular healing. Coalition with site of focal pain will be helpful. No other acute abnormality. There are sequela of multiple prior fractures and there are degenerative changes. Pelvis MRI 05/16/18 00:00 IMPRESSION: Massive soft tissue hematoma involving the left gluteus medius and extending into the fascial planes between the gluteus medius and gluteus mejia. Maximum diameter 20 cm. Possible site of active bleeding seen. Assessment & Plan - Diagnosis (1) Hip hematoma, left Qualifiers: Encounter type: initial encounter Qualified Code(s): S70.02XA - Contusion of left hip, initial encounter Is this a current diagnosis for this admission?: Yes Plan: 05/18/2018-patient was admitted with history of fall injuring the left hip. MRI of the hip shows massive hematoma in the gluteus medius region with hematoma extending between the fascial planes of gluteus medius and mejia. Patient is on appropriate pain medications. Denies any complaints today. Physical therapy is working with the patient. Hemoglobin is 9.7. During the hospital stay he received 2 units of blood transfusion. (2) Prerenal azotemia Is this a current diagnosis for this admission?: Yes Plan: 05/18/2018-patient's admission creatinine is 1.51 today it was 1.58 stable. (3) Avascular necrosis Is this a current diagnosis for this admission?: Yes Plan: 05/18/2018-avascular necrosis may be secondary to diabetes. Other team is following the patient. (4) Anemia Qualifiers: Anemia type: unspecified type Qualified Code(s): D64.9 - Anemia, unspecified Is this a current diagnosis for this admission?: Yes Plan: 05/18/2018 hemoglobin today is 10.7 stable after patient receiving 2 units of PRBC. - Time Time Spent with patient: 15-24 minutes Medications reviewed and adjusted accordingly: Yes Anticipated discharge: Home
[2018-05-18 14:48] LABS: ABSOLUTE EOSINOPHILS # (AUTO) 0.5 10^3/uL (0.0-0.6); ABSOLUTE LYMPHOCYTES (AUTO) 1.1 10^3/uL (0.5-4.7); ABSOLUTE MONOCYTES (AUTO) 0.6 10^3/uL (0.1-1.4); ABSOLUTE NEUT (AUTO) 6.3 10^3/uL (1.7-8.2); BASOPHILS % (AUTO) 0.5 % (0-2); HEMOGLOBIN 10.1 g/dL (13.5-17.0); LYMPHOCYTES % (AUTO) 13.2 % (13-45); MEAN CORPUSCULAR HEMOGLOBIN 29.9 pg (27.0-33.4); MEAN CORPUSCULAR HGB CONC 34.8 g/dL (32.0-36.0); MEAN CORPUSCULAR VOLUME 86 fl (80-97); MONOCYTES % (AUTO) 6.9 % (3-13); PLATELET COUNT 310 10^3/uL (150-450); RED BLOOD COUNT 3.37 10^6/uL (4.35-5.55); SEGMENTED NEUTROPHILS % (AUTO) 73.4 % (42-78); TOTAL CELLS COUNTED % (AUTO) 100 %; WHITE BLOOD COUNT 8.6 10^3/uL (4.0-10.5)
[2018-05-18 15:12] LABS: ALANINE AMINOTRANSFERASE 20 U/L (21-72); ALBUMIN 3.3 g/dL (3.5-5.0); ALKALINE PHOSPHATASE 68 U/L (38-126); ANION GAP 11 (5-19); ASPARTATE AMINO TRANSFERASE 27 U/L (17-59); BILIRUBIN,DIRECT 0.2 mg/dL (0.0-0.4); BILIRUBIN,TOTAL 1.7 mg/dL (0.2-1.3); BLOOD UREA NITROGEN 39 mg/dL (7-20); CALCIUM 9.4 mg/dL (8.4-10.2); CARBON DIOXIDE 26 mmol/L (22-30); CHLORIDE 102 mmol/L (98-107); GLUCOSE 310 mg/dL (75-110); SODIUM 138.5 mmol/L (137-145); TOTAL PROTEIN 5.9 g/dL (6.3-8.2)
[2018-05-18] MEDS: INSULIN GLARGINE,HUM.REC.ANLOG 300 UNIT/3 ML INSULN.PEN SUBCUT SCH ×2 (17:10→21:34)
--- NOTE | 2018-05-18 19:11 | PDOC PROGRESS REPORT ---
Subjective Progress Note for:: 05/18/18 Subjective:: Patient lying in bed without distress. States the pain is still there but much better each day and has begun physical therapy walking 30 feet. Denies numbness or tingling. Reason For Visit: LEFT HIP PAIN R/O AVASCULAR NECROSIS Physical Exam Vital Signs: Temp Pulse Resp BP Pulse Ox 97.4 F 86 18 135/52 H 97 05/18/18 07:30 05/18/18 14:00 05/18/18 07:30 05/18/18 07:30 05/18/18 07:30 Intake & Output 05/17/18 05/18/18 05/19/18 06:59 06:59 06:59 Intake Total 2541 679 Output Total 1600 860 Balance 941 -181 Weight 87 kg 87.2 kg Musculoskeletal exam: PRESENT: other - Left hip: Area of ecchymosis unchanged compared to previous examinations. No pain with hip range of motion. Mild tenderness to palpation. No sensory deficits. No pain with internal/external rotation. Intact straight leg raise against resistance. Compartments soft and compressible no sign of compartment syndrome Results Laboratory Results: 05/18/18 14:25 05/18/18 14:25 05/18/18 05/18/18 05/18/18 06:59 14:25 14:25 WBC 8.9 8.6 RBC 3.24 L 3.37 L Hgb 9.7 L 10.1 L Hct 27.8 L 29.0 L MCV 86 86 MCH 30.0 29.9 MCHC 35.0 34.8 RDW 13.9 14.0 Plt Count 281 310 Seg Neutrophils % 69.5 73.4 Lymphocytes % 15.8 13.2 Monocytes % 7.7 6.9 Eosinophils % 6.4 H 6.0 Basophils % 0.6 0.5 Absolute Neutrophils 6.2 6.3 Absolute Lymphocytes 1.4 1.1 Absolute Monocytes 0.7 0.6 Absolute Eosinophils 0.6 0.5 Absolute Basophils 0.1 0.0 Sodium 138.5 Potassium 5.0 Chloride 102 Carbon Dioxide 26 Anion Gap 11 BUN 39 H Creatinine 1.32 H Est GFR ( Amer) > 60 Est GFR (Non-Af Amer) 53 L Glucose 310 H Calcium 9.4 Magnesium 1.8 Total Bilirubin 1.7 H AST 27 ALT 20 L Alkaline Phosphatase 68 Total Protein 5.9 L Albumin 3.3 L Impressions: Hip X-Ray 05/15/18 19:12 IMPRESSION: No acute left hip fracture. Prior fixation of the right proximal femur with hardware abnormalities as described above. Lower Extremity CT 05/15/18 20:27 IMPRESSION: Possible acute fracture of the posterior aspect of the right ileum but there is prior fracture at this location and this could simply be irregular healing. Coalition with site of focal pain will be helpful. No other acute abnormality. There are sequela of multiple prior fractures and there are degenerative changes. Pelvis MRI 05/16/18 00:00 IMPRESSION: Massive soft tissue hematoma involving the left gluteus medius and extending into the fascial planes between the gluteus medius and gluteus mejia. Maximum diameter 20 cm. Possible site of active bleeding seen. Assessment & Plan - Diagnosis (1) Hip hematoma, left Qualifiers: Encounter type: initial encounter Qualified Code(s): S70.02XA - Contusion of left hip, initial encounter Is this a current diagnosis for this admission?: Yes Plan: Patient has evidence of a large left hip hematoma but no history of blood dyscrasia or disorder. I have discussed the case with radiology they do admit the findings could suggest possible active bleeder although this would be a rare finding especially with MRI. Discussed various treatments with the radiologist including possible embolization which they felt was feasible. Currently however there is no evidence of hematoma expansion although patient's hemoglobin/hematocrit did decrease to have stabilized to 10.1/. Thus I do not feel there is further invasive treatment required. Patient may be follow- up as needed.
[2018-05-18] MEDS: ATORVASTATIN CALCIUM 40 MG TABLET PO SCH (21:33)
[2018-05-18] MEDS: BIMATOPROST 0.01% OPH SOLN 2.5 ML/BOTTLE OU SCH (21:34)
[2018-05-18] MEDS ORDERED: CARBOXYMETHYLCELLULOSE SOD 0.5% 0.4 ML DROPERETTE OU SCH (22:00)
[2018-05-18] MEDS ORDERED: DORZOLAMIDE HCL 2%/TIMOLOL MALEAT 0.5% OPH SOLN 10 ML OU SCH (22:00)
[2018-05-19] MEDS: HEPARIN SOD (PORCINE) 5,000 UNIT/ML 1 ML SYRINGE SUBCUT SCH ×3 (06:43→21:42)
[2018-05-19] MEDS: INSULIN GLARGINE,HUM.REC.ANLOG 300 UNIT/3 ML INSULN.PEN SUBCUT SCH ×3 (06:44→21:33)
[2018-05-19] MEDS: INSULIN LISPRO 100 UNIT/ML 3 ML VIAL SUBCUT PRN ×4 (08:14→21:34)
[2018-05-19] MEDS: DOCUSATE SODIUM 100 MG CAPSULE PO SCH ×2 (10:57→17:36)
--- NOTE | 2018-05-19 13:59 | PDOC PROGRESS REPORT ---
Subjective Progress Note for:: 05/19/18 Subjective:: 05/18/[id number]-qlxq-old male came to the emergency room after a fall 7 days ago, with swelling and bruising of the left thigh. The orthotic team evaluated the patient. The MRI shows there is no obvious fracture. Patient comfortably in the bed. No complaints. 05/19/2018 patient is comfortably in the bed. No complaints. Communicating very well. His blood sugar dropped to 42 early this morning. And he was given dextrose blood sugars are back up to 200s. Reason For Visit: LEFT HIP PAIN R/O AVASCULAR NECROSIS Physical Exam Vital Signs: Temp Pulse Resp BP Pulse Ox 98.5 F 95 16 137/54 H 99 05/19/18 12:48 05/19/18 12:48 05/19/18 12:48 05/19/18 12:48 05/19/18 12:48 Intake & Output 05/18/18 05/19/18 05/20/18 06:59 06:59 06:59 Intake Total 679 480 Output Total 860 375 Balance -181 105 Weight 87.2 kg 87.2 kg General appearance: PRESENT: no acute distress Head exam: PRESENT: atraumatic Eye exam: PRESENT: PERRLA Mouth exam: PRESENT: moist Neck exam: ABSENT: carotid bruit, JVD, lymphadenopathy, thyromegaly Respiratory exam: PRESENT: clear to auscultation carri. ABSENT: rales, rhonchi, wheezes Cardiovascular exam: PRESENT: RRR. ABSENT: diastolic murmur, rubs, systolic murmur Neurological exam: PRESENT: alert, awake, oriented to person, oriented to place , oriented to time, oriented to situation, CN II-XII grossly intact. ABSENT: motor sensory deficit Psychiatric exam: PRESENT: appropriate affect, normal mood. ABSENT: homicidal ideation, suicidal ideation Results Laboratory Results: 05/18/18 14:25 05/18/18 14:25 05/18/18 05/18/18 14:25 14:25 WBC 8.6 RBC 3.37 L Hgb 10.1 L Hct 29.0 L MCV 86 MCH 29.9 MCHC 34.8 RDW 14.0 Plt Count 310 Seg Neutrophils % 73.4 Lymphocytes % 13.2 Monocytes % 6.9 Eosinophils % 6.0 Basophils % 0.5 Absolute Neutrophils 6.3 Absolute Lymphocytes 1.1 Absolute Monocytes 0.6 Absolute Eosinophils 0.5 Absolute Basophils 0.0 Sodium 138.5 Potassium 5.0 Chloride 102 Carbon Dioxide 26 Anion Gap 11 BUN 39 H Creatinine 1.32 H Est GFR ( Amer) > 60 Est GFR (Non-Af Amer) 53 L Glucose 310 H Calcium 9.4 Magnesium 1.8 Total Bilirubin 1.7 H AST 27 ALT 20 L Alkaline Phosphatase 68 Total Protein 5.9 L Albumin 3.3 L Impressions: Hip X-Ray 05/15/18 19:12 IMPRESSION: No acute left hip fracture. Prior fixation of the right proximal femur with hardware abnormalities as described above. Lower Extremity CT 05/15/18 20:27 IMPRESSION: Possible acute fracture of the posterior aspect of the right ileum but there is prior fracture at this location and this could simply be irregular healing. Coalition with site of focal pain will be helpful. No other acute abnormality. There are sequela of multiple prior fractures and there are degenerative changes. Pelvis MRI 05/16/18 00:00 IMPRESSION: Massive soft tissue hematoma involving the left gluteus medius and extending into the fascial planes between the gluteus medius and gluteus mejia. Maximum diameter 20 cm. Possible site of active bleeding seen. Assessment & Plan - Diagnosis (1) Hip hematoma, left Qualifiers: Encounter type: initial encounter Qualified Code(s): S70.02XA - Contusion of left hip, initial encounter Is this a current diagnosis for this admission?: Yes Plan: 05/18/2018-patient was admitted with history of fall injuring the left hip. MRI of the hip shows massive hematoma in the gluteus medius region with hematoma extending between the fascial planes of gluteus medius and mejia. Patient is on appropriate pain medications. Denies any complaints today. Physical therapy is working with the patient. Hemoglobin is 9.7. During the hospital stay he received 2 units of blood transfusion. 05/19/2018-patient was admitted with large left hip hematoma. He received 2 units of blood transfusion during the hospital stay. His hemoglobin is 10.7 stable. Surgical team and orthopedic team following the patient. (2) Prerenal azotemia Is this a current diagnosis for this admission?: Yes Plan: 05/18/2018-patient's admission creatinine is 1.51 today it was 1.58 stable. 05/19/2018-on admission creatinine is 1.51 today's creatinine is 1.34 prerenal azotemia is resolving. (3) Avascular necrosis Is this a current diagnosis for this admission?: Yes Plan: 05/18/2018-avascular necrosis may be secondary to diabetes. Other team is following the patient. 05/19/2018-left hip avascular necrosis possible may be secondary to diabetes. (4) Anemia Qualifiers: Anemia type: unspecified type Qualified Code(s): D64.9 - Anemia, unspecified Is this a current diagnosis for this admission?: Yes Plan: 05/18/2018 hemoglobin today is 10.7 stable after patient receiving 2 units of PRBC. 05/19/2018 latest hemoglobin is 10.7 stable. - Time Time Spent with patient: 15-24 minutes Medications reviewed and adjusted accordingly: Yes Anticipated discharge: Home
[2018-05-19] MEDS: ATORVASTATIN CALCIUM 40 MG TABLET PO SCH (21:34)
[2018-05-19] MEDS: BIMATOPROST 0.01% OPH SOLN 2.5 ML/BOTTLE OU SCH (21:34)
[2018-05-20] MEDS: HEPARIN SOD (PORCINE) 5,000 UNIT/ML 1 ML SYRINGE SUBCUT SCH ×3 (06:20→22:24)
[2018-05-20] MEDS: INSULIN GLARGINE,HUM.REC.ANLOG 300 UNIT/3 ML INSULN.PEN SUBCUT SCH ×3 (06:21→22:25)
[2018-05-20 06:43] LABS: ABSOLUTE BASOPHILS # (AUTO) 0.1 10^3/uL (0.0-0.2); ABSOLUTE EOSINOPHILS # (AUTO) 0.4 10^3/uL (0.0-0.6); ABSOLUTE LYMPHOCYTES (AUTO) 1.2 10^3/uL (0.5-4.7); ABSOLUTE MONOCYTES (AUTO) 0.9 10^3/uL (0.1-1.4); BASOPHILS % (AUTO) 0.6 % (0-2); EOSINOPHILS % (AUTO) 3.1 % (0-6); HEMOGLOBIN 10.9 g/dL (13.5-17.0); LYMPHOCYTES % (AUTO) 10.8 % (13-45); MEAN CORPUSCULAR HEMOGLOBIN 29.2 pg (27.0-33.4); MEAN CORPUSCULAR VOLUME 86 fl (80-97); MONOCYTES % (AUTO) 7.7 % (3-13); PLATELET COUNT 331 10^3/uL (150-450); RED BLOOD COUNT 3.72 10^6/uL (4.35-5.55); SEGMENTED NEUTROPHILS % (AUTO) 77.8 % (42-78); TOTAL CELLS COUNTED % (AUTO) 100 %; WHITE BLOOD COUNT 11.5 10^3/uL (4.0-10.5)
[2018-05-20 06:54] LABS: ALANINE AMINOTRANSFERASE 30 U/L (21-72); ALBUMIN 3.7 g/dL (3.5-5.0); ALKALINE PHOSPHATASE 70 U/L (38-126); ANION GAP 9 (5-19); ASPARTATE AMINO TRANSFERASE 29 U/L (17-59); BILIRUBIN,DIRECT 0.5 mg/dL (0.0-0.4); BLOOD UREA NITROGEN 36 mg/dL (7-20); CALCIUM 9.7 mg/dL (8.4-10.2); CARBON DIOXIDE 27 mmol/L (22-30); CHLORIDE 107 mmol/L (98-107); GLUCOSE 52 mg/dL (75-110); POTASSIUM 4.4 mmol/L (3.6-5.0); SODIUM 143.1 mmol/L (137-145); TOTAL PROTEIN 6.4 g/dL (6.3-8.2)
[2018-05-20] MEDS: DOCUSATE SODIUM 100 MG CAPSULE PO SCH ×2 (09:52→17:29)
[2018-05-20] MEDS: INSULIN LISPRO 100 UNIT/ML 3 ML VIAL SUBCUT PRN ×2 (12:14→16:45)
--- NOTE | 2018-05-20 16:20 | PDOC PROGRESS REPORT ---
Subjective Progress Note for:: 05/20/18 Subjective:: 05/18/[id number]-ckfm-old male came to the emergency room after a fall 7 days ago, with swelling and bruising of the left thigh. The orthotic team evaluated the patient. The MRI shows there is no obvious fracture. Patient comfortably in the bed. No complaints. 05/19/2018 patient is comfortably in the bed. No complaints. Communicating very well. His blood sugar dropped to 42 early this morning. And he was given dextrose blood sugars are back up to 200s. 05/20/2018-patient is comfortably in the bed. No acute events in the last 24 hours. No complaints. His blood sugar is 196. Waiting for the placement. Reason For Visit: LEFT HIP PAIN R/O AVASCULAR NECROSIS Physical Exam Vital Signs: Temp Pulse Resp BP Pulse Ox 97.9 F 98 20 124/70 98 05/20/18 11:56 05/20/18 14:00 05/20/18 11:56 05/20/18 11:56 05/20/18 11:56 Intake & Output 05/19/18 05/20/18 05/21/18 06:59 06:59 06:59 Intake Total 480 739 Output Total 375 650 Balance 105 89 Weight 87.2 kg 82.9 kg General appearance: PRESENT: no acute distress Head exam: PRESENT: atraumatic Eye exam: PRESENT: PERRLA Mouth exam: PRESENT: moist Neck exam: ABSENT: carotid bruit, JVD, lymphadenopathy, thyromegaly Respiratory exam: PRESENT: clear to auscultation carri. ABSENT: rales, rhonchi, wheezes Cardiovascular exam: PRESENT: RRR. ABSENT: diastolic murmur, rubs, systolic murmur GI/Abdominal exam: PRESENT: normal bowel sounds, soft. ABSENT: distended, guarding, mass, organolmegaly, rebound, tenderness Neurological exam: PRESENT: alert, awake, oriented to person, oriented to place , oriented to time, oriented to situation, CN II-XII grossly intact. ABSENT: motor sensory deficit Psychiatric exam: PRESENT: appropriate affect, normal mood. ABSENT: homicidal ideation, suicidal ideation Results Laboratory Results: 05/20/18 06:18 05/20/18 06:18 05/20/18 05/20/18 06:18 06:18 WBC 11.5 H RBC 3.72 L Hgb 10.9 L Hct 32.0 L MCV 86 MCH 29.2 MCHC 34.0 RDW 14.0 Plt Count 331 Seg Neutrophils % 77.8 Lymphocytes % 10.8 L Monocytes % 7.7 Eosinophils % 3.1 Basophils % 0.6 Absolute Neutrophils 9.0 H Absolute Lymphocytes 1.2 Absolute Monocytes 0.9 Absolute Eosinophils 0.4 Absolute Basophils 0.1 Sodium 143.1 Potassium 4.4 Chloride 107 Carbon Dioxide 27 Anion Gap 9 BUN 36 H Creatinine 1.30 H Est GFR ( Amer) > 60 Est GFR (Non-Af Amer) 54 L Glucose 52 L Calcium 9.7 Magnesium 1.8 Total Bilirubin 2.0 H AST 29 ALT 30 Alkaline Phosphatase 70 Total Protein 6.4 Albumin 3.7 Impressions: Hip X-Ray 05/15/18 19:12 IMPRESSION: No acute left hip fracture. Prior fixation of the right proximal femur with hardware abnormalities as described above. Lower Extremity CT 05/15/18 20:27 IMPRESSION: Possible acute fracture of the posterior aspect of the right ileum but there is prior fracture at this location and this could simply be irregular healing. Coalition with site of focal pain will be helpful. No other acute abnormality. There are sequela of multiple prior fractures and there are degenerative changes. Pelvis MRI 05/16/18 00:00 IMPRESSION: Massive soft tissue hematoma involving the left gluteus medius and extending into the fascial planes between the gluteus medius and gluteus mejia. Maximum diameter 20 cm. Possible site of active bleeding seen. Assessment & Plan - Diagnosis (1) Hip hematoma, left Qualifiers: Encounter type: initial encounter Qualified Code(s): S70.02XA - Contusion of left hip, initial encounter Is this a current diagnosis for this admission?: Yes Plan: 05/18/2018-patient was admitted with history of fall injuring the left hip. MRI of the hip shows massive hematoma in the gluteus medius region with hematoma extending between the fascial planes of gluteus medius and mejia. Patient is on appropriate pain medications. Denies any complaints today. Physical therapy is working with the patient. Hemoglobin is 9.7. During the hospital stay he received 2 units of blood transfusion. 05/19/2018-patient was admitted with large left hip hematoma. He received 2 units of blood transfusion during the hospital stay. His hemoglobin is 10.7 stable. Surgical team and orthopedic team following the patient. 05/20/2018-patient was admitted with left hip hematoma after fall. Surgical team in order to team followed the patient. No fracture was noticed. Hemoglobin is stable 10.9. Waiting for bed in the senior care. Probably he may go there tomorrow. (2) Prerenal azotemia Is this a current diagnosis for this admission?: Yes Plan: 05/18/2018-patient's admission creatinine is 1.51 today it was 1.58 stable. 05/19/2018-on admission creatinine is 1.51 today's creatinine is 1.34 prerenal azotemia is resolving. 05/20/2018 today's creatinine is 1.30. AK I is resolving. (3) Avascular necrosis Is this a current diagnosis for this admission?: Yes Plan: 05/18/2018-avascular necrosis may be secondary to diabetes. Other team is following the patient. 05/19/2018-left hip avascular necrosis possible may be secondary to diabetes. 05/20/2018 ortho followed the patient for avascular necrosis. (4) Anemia Qualifiers: Anemia type: unspecified type Qualified Code(s): D64.9 - Anemia, unspecified Is this a current diagnosis for this admission?: Yes Plan: 05/18/2018 hemoglobin today is 10.7 stable after patient receiving 2 units of PRBC. 05/19/2018 latest hemoglobin is 10.7 stable. 05/20/2018-today's hemoglobin is 10.9. Patient received 2 units of PRBC during the hospital stay. - Time Time Spent with patient: 15-24 minutes Medications reviewed and adjusted accordingly: Yes Anticipated discharge: SNF
[2018-05-20] MEDS: ATORVASTATIN CALCIUM 40 MG TABLET PO SCH (23:18)
[2018-05-20] MEDS: BIMATOPROST 0.01% OPH SOLN 2.5 ML/BOTTLE OU SCH (23:18)
[2018-05-21] MEDS: HEPARIN SOD (PORCINE) 5,000 UNIT/ML 1 ML SYRINGE SUBCUT SCH ×4 (05:18→22:22)
[2018-05-21] MEDS: INSULIN GLARGINE,HUM.REC.ANLOG 300 UNIT/3 ML INSULN.PEN SUBCUT SCH ×3 (06:24→22:15)
[2018-05-21] MEDS: DOCUSATE SODIUM 100 MG CAPSULE PO SCH ×2 (09:18→17:00)
[2018-05-21] MEDS: INSULIN LISPRO 100 UNIT/ML 3 ML VIAL SUBCUT PRN ×3 (11:38→22:18)
--- NOTE | 2018-05-21 15:55 | PDOC TRANSFER SUMMARY ---
General - Admit/Disc Date/PCP Admission Date/Primary Care Provider: 05/15/18 21:29 MICHAELA BYRD NP Discharge Date: 05/21/18 - Discharge Diagnosis (1) Hip hematoma, left Is this a current diagnosis for this admission?: Yes Summary: 05/21/2018 77-year-old male admitted after history of fall with left hip hematoma. Surgical team are 13 follow the patient along with hospitalist. No fractures were noticed. The hematoma is gradually resolving. No acute events during the hospital course. She is going to the acute rehab. (2) Prerenal azotemia Is this a current diagnosis for this admission?: Yes Summary: 05/21/2018-patient's admission creatinine is 1.51. Yesterday it was 1.3. renal prerenal azotemia resolved with IV fluids. (3) Avascular necrosis Is this a current diagnosis for this admission?: Yes Summary: 05/21/2018 patient has probable avascular necrosis of the left hip secondary to diabetes mellitus. Also team involved in the case, conservative management was recommended. (4) Anemia Is this a current diagnosis for this admission?: Yes Summary: 05/21/2018-during the hospital stay patient received 2 units of PRBC for hemoglobin of 7.9. Latest hemoglobin is 10.9. Stable. - Additional Information Resuscitation Status: Full Code Discharge Diet: Cardiac Discharge Activity: Activity As Tolerated Home Medications: Atorvastatin Calcium [Lipitor 40 mg Tablet] 40 mg PO QHS 05/16/18 Bimatoprost [Lumigan 0.01% Oph Soln 2.5 ml/Bottle] 1 drop OU QHS 05/16/18 Insulin Glargine,Hum.rec.anlog [Lantus Insulin 100 Unit/mL] 48 unit SQ DAILY 01/24 Insulin Lispro [Humalog Insulin (Lispro) 100 unit/mL] 0 unit SQ .SLIDING SCALE 05/16/18 History of Present Illness Admission Date/PCP: 05/15/18 21:29 MICHAELA BYRD NP History of Present Illness: JUAQUIN KIRK is a 77 year old male admitted with history of fall and a left hip hematoma. No fractures were noticed during the hospital stay. He got 2 units of blood transfusion for drop in hemoglobin. Prerenal azotemia resolved during the hospital stay. Physical Exam Vital Signs: Temp Pulse Resp BP Pulse Ox 97.6 F 93 18 144/70 H 100 05/21/18 11:45 05/21/18 13:52 05/21/18 11:45 05/21/18 11:45 05/21/18 11:45 Intake & Output 05/20/18 05/21/18 05/22/18 06:59 06:59 06:59 Intake Total 739 1522 621 Output Total 650 800 200 Balance 89 722 421 Weight 82.9 kg 82.7 kg General appearance: PRESENT: no acute distress Head exam: PRESENT: atraumatic Eye exam: PRESENT: PERRLA Mouth exam: PRESENT: moist Neck exam: ABSENT: carotid bruit, JVD, lymphadenopathy, thyromegaly Respiratory exam: PRESENT: clear to auscultation carri. ABSENT: rales, rhonchi, wheezes Cardiovascular exam: PRESENT: RRR. ABSENT: diastolic murmur, rubs, systolic murmur GI/Abdominal exam: PRESENT: normal bowel sounds, soft. ABSENT: distended, guarding, mass, organolmegaly, rebound, tenderness Extremities exam: PRESENT: other - Bruises around the left hip present. Also on the left upper thigh. Neurological exam: PRESENT: alert, awake, oriented to person, oriented to place , oriented to time, oriented to situation, CN II-XII grossly intact. ABSENT: motor sensory deficit Psychiatric exam: PRESENT: appropriate affect, normal mood. ABSENT: homicidal ideation, suicidal ideation Results Laboratory Results: 05/20/18 06:18 05/20/18 06:18 Impressions: Hip X-Ray 05/15/18 19:12 IMPRESSION: No acute left hip fracture. Prior fixation of the right proximal femur with hardware abnormalities as described above. Lower Extremity CT 05/15/18 20:27 IMPRESSION: Possible acute fracture of the posterior aspect of the right ileum but there is prior fracture at this location and this could simply be irregular healing. Coalition with site of focal pain will be helpful. No other acute abnormality. There are sequela of multiple prior fractures and there are degenerative changes. Pelvis MRI 05/16/18 00:00 IMPRESSION: Massive soft tissue hematoma involving the left gluteus medius and extending into the fascial planes between the gluteus medius and gluteus mejia. Maximum diameter 20 cm. Possible site of active bleeding seen. Transfer Plan - Time Spent with Patient Time spent with patient: Less than 30 Minutes Qualifiers - * PATIENT BEING DISCHARGED WITH ANY OF THE FOLLOWING DIAGNOSIS: No VTE patient discharged on overlapping Therapy?: Yes
[2018-05-21] MEDS: ATORVASTATIN CALCIUM 40 MG TABLET PO SCH (22:18)
[2018-05-21] MEDS: BIMATOPROST 0.01% OPH SOLN 2.5 ML/BOTTLE OU SCH (22:23)
[2018-05-22 00:08] VITALS: BP 131/62
[2018-05-22] MEDS: HEPARIN SOD (PORCINE) 5,000 UNIT/ML 1 ML SYRINGE SUBCUT SCH (05:32)
[2018-05-22] MEDS: INSULIN GLARGINE,HUM.REC.ANLOG 300 UNIT/3 ML INSULN.PEN SUBCUT SCH (06:45)
== END 2018-05-22 08:25 | DRG 605 ==
LOC: ER 18:58 → EH 21:29 → 5 05-16 00:52
PROVIDERS: ADMIT Internal Medicine; ATTEND Internal Medicine
PROC: 30253N1 (ICD-10-PCS; principal; 2018-05-16)
PROC: 3E02340 Introduction of Influenza Vaccine into Muscle, Percutaneous Approach (ICD-10-PCS; 2018-05-21)
DX: S70.02XA Contusion of left hip, initial encounter (principal); M90.552 Osteonecrosis in diseases classified elsewhere, left thigh; R71.0 Precipitous drop in hematocrit; S30.0XXA Contusion of lower back and pelvis, initial encounter; R39.2 Extrarenal uremia; W19.XXXA Unspecified fall, initial encounter; I10 Essential (primary) hypertension; E78.5 Hyperlipidemia, unspecified; E10.65 Type 1 diabetes mellitus with hyperglycemia; Z23 Encounter for immunization; Z79.4 Long term (current) use of insulin; Z82.49 Family history of ischemic heart disease and other diseases of the circulatory system
CPT/HCPCS: 36415; 36430; 72195; 80048; 80053; 80069; 82962; 83036; 83540; 83735; 85025; 85027; 85610; 86850; 86900; 86901; 86920; 90471; 90686; 93005; 93010; 99285; G0008; G8978-GP; G8979-GP; J1200; J1644; J1815; J1885; J1940; J2270; J3490; J7030; P9016

== ENCOUNTER 2020-01-26 07:48 | Day surgery (SDC) | payer MEDICARE ==
[~2020-01-26 07:48] MED LIST: PROPOFOL INJ 200 MG/20 ML VIAL IV ONE
--- NOTE | 2020-01-26 10:11 | Operative Report ---
Operative Report DATE OF SURGERY: 01/26/20 Operative Report: The risk, benefits and alternatives of the procedure including the risk of bleeding, perforation requiring surgery have been explained to the patient in detail and informed consent has been obtained. Patient is placed in a left, lateral decubital position. Timeout was called. Propofol medication is administered. Rectal examination is done which did not reveal any masses, tears or fissures. An Olympus videoscope was introduced into the patient's rectum it is carefully advanced all the way to the cecum. Cecum was identified by the usual anatomical landmarks including the ileocecal valve as well as the appendiceal office. Photodocumentation is obtained. Scope was then sequentially pulled back via the various segments of the colon including the ascending colon, hepatic flexure, transverse colon, splenic flexure, descending colon and finally into the rectosigmoid portions of the colon. Retroflexion maneuvers performed. PREOPERATIVE DIAGNOSIS: Change in bowel habits. Reportedly normal colon guard several years ago, POSTOPERATIVE DIAGNOSIS: Hepatic flexure polyp status post snare polypectomy and retrieved. Rectal AVM status post ablation. Internal hemorrhoids OPERATION: Colonoscopy with snare polypectomy. Colonoscopy with ablation SURGEON: YOKO SINGLETON ANESTHESIA: LMAC TISSUE REMOVED OR ALTERED: As noted above. COMPLICATIONS: None. ESTIMATED BLOOD LOSS: None. INTRAOPERATIVE FINDINGS: As noted above. PROCEDURE: Patient tolerated the procedure well. No immediate postprocedure complications are noted. Patient is discharged in good condition. Discharge date 01/26/2020. Discharge diet: Regular. Discharge activity: Regular. 2 to 3-week follow-up to discuss findings. Patient is instructed to call the office or proceed to the emergency room should there be any further problems or questions. Wait on the pathology. 5-year surveillance colonoscopy depending on clinical stability
[2020-01-26] MEDS ORDERED: SIMETHICONE 80 MG TAB.CHEW ONE (10:37)
[2020-01-26 11:26] VITALS: BP 155/57
--- NOTE | 2020-01-27 09:42 | EKG REPORT ---
SEVERITY:- NORMAL ECG - SINUS RHYTHM : Confirmed by: Jean Painting 27-Jan-2020 09:41:29
== END 2020-01-26 11:20 | disposition home or self-care (01) ==
LOC: END 07:48
PROVIDERS: ATTEND Internal Medicine Gastroenterology
DX: Q27.33 Arteriovenous malformation of digestive system vessel (principal); D12.6 Benign neoplasm of colon, unspecified; K64.8 Other hemorrhoids; K92.1 Melena; Z79.4 Long term (current) use of insulin; I10 Essential (primary) hypertension; E11.9 Type 2 diabetes mellitus without complications; Z85.46 Personal history of malignant neoplasm of prostate; Z03.818 Encounter for observation for suspected exposure to other biological agents ruled out
CPT/HCPCS: 45382; 45385; 82962; 88305 ×2; 93005; 93010; 00811; U0003; A9270; J2704; C9803; 811; 87635